=== PATIENT | female | born 1945 | race Caucasian/White ===

== ENCOUNTER → 2016-10-28 | Outpatient (CLI) | payer MEDICARE ==
[2015-04-16 16:50] VITALS: BP 141/67
[~2016-10-28] MED LIST: REGADENOSON 0.4 MG/5 ML DISP.SYRIN. IV ONE
--- NOTE | 2016-10-28 09:21 | RAD ---
APPROVED REPORT Patient Location : OUT-PATIENT Indications Lower Extremity Pain : Bilateral Findings Telles scale images of the right and left greater saphenous veins reveals no thrombus on limited images . The RGSV measures 5.8 mm and does not show clear evidence of reflux. The LGSV measures 4.4 mm and d oes not reflux. The bilateral lesser saphenous veins do not reflux. Critical Notification Critical Value: No <Conclusion> 1. Negative for reflux in the bilateral lesser and greater saphenous veins.
--- NOTE | 2016-10-28 11:35 | CARD ---
APPROVED REPORT EXAM: Two-dimensional and M-mode echocardiogram with Doppler and color Doppler. Other Information Quality : Average Rhythm : NSR INDICATION Chest Pain 2D DIMENSIONS Left Atrium(2D)2.7 (1.6-4.0cm)IVSd0.7 (0.7-1.1cm) Aortic Root(2D)2.5 (2.0-3.7cm)LVDd3.9 (3.9-5.9cm) LVOT Diameter2.0 (1.8-2.4cm)PWd0.6 (0.7-1.1cm) LVDs2.9 (2.5-4.0cm)FS (%) 25.3 % SV33.1 mlLVEF(%)50.5 (>50%) Aortic Valve AoV Peak Dallin.116.4cm/sAoV VTI25.7cm AO Peak GR.5.4mmHgLVOT Peak Dallin.112.0cm/s LVOT VTI 23.86cmAO Mean GR.3mmHg BRADFORD (VMAX)2.12jz5MRS (VTI)2.80cm2 AI P 1/2 Tbep926qh Mitral Valve MV E Xltxcjmr03.8cm/sMV DECEL LPVP461tc MV A Kduesqdm530.4cm/sMV XMV45gu E/A Ratio0.8MV A Fznyrjhs76np MVA (PHT)5.81cm2 TDI E/Lateral E'8.1E/Medial E'12.3 Pulmonary Valve PV Peak Oqeftjop92.1cm/sPV Peak Grad.3mmHg RVOT VTI14.9cm Tricuspid Valve TR P. Xblcgoez392cj/sRAP HEBOGFYR3rbIc TR Peak Gr.02bgFkMLZS30gaNg Pulmonary Vein S1 Anemhrhg12.4cm/sD2 Rdqtochc44.5cm/s LEFT VENTRICLE The left ventricle is normal size. There is normal left ventricular wall thickness. Left ventricle sy stolic function is normal. The Ejection Fraction is 55%. There is normal LV segmental wall motion. Ti ssue Doppler imaging reveals mild left ventricular diastolic dysfunction. Transmitral Doppler flow pa ttern is Grade I-abnormal relaxation pattern. There is no ventricular septal defect visualized. RIGHT VENTRICLE The right ventricle is normal size. The right ventricular systolic function is normal. ATRIA The left atrium size is normal. The right atrium size is normal. The interatrial septum is intact wit h no evidence for an atrial septal defect or patent foramen ovale as noted on 2-D or Doppler imaging. AORTIC VALVE The aortic valve is mildly calcified. The aortic valve is trileaflet. Doppler and Color Flow revealed moderate aortic regurgitation. There is no significant aortic valvular stenosis. MITRAL VALVE Mitral annular calcification is mild. The mitral valve leaflets are thickened. There is no mitral laura ve stenosis. Doppler and Color Flow revealed mild mitral regurgitation. TRICUSPID VALVE The tricuspid valve is normal in structure and function. Doppler and Color Flow revealed trace tricus pid regurgitation. The PA pressure was estimated at 18 mmHg. There is no tricuspid valve stenosis. PULMONIC VALVE The pulmonic valve is not well visualized. Doppler and Color Flow revealed trace pulmonic valvular re gurgitation. There is no pulmonic valvular stenosis. GREAT VESSELS The aortic root is normal in size. The ascending aorta is normal in size. Normal pulmonary venous adelita w (Doppler). The IVC is normal in size and collapses >50% with inspiration. PERICARDIAL EFFUSION There is no evidence of significant pericardial effusion. Critical Notification Critical Value: No <Conclusion> Left ventricle systolic function is normal. The Ejection Fraction is 55%. There is normal LV segmental wall motion. Transmitral Doppler flow pattern is Grade I-abnormal relaxation pattern. Moderate aortic regurgitation. Mild mitral regurgitation. Trace tricuspid regurgitation. The PA pressure was estimated at 18 mmHg. There is no evidence of significant pericardial effusion.
--- NOTE | 2016-10-28 13:55 | RAD ---
APPROVED REPORT Test Type: Exercise Stress Nurse/Tech: Lisa Clinton R.N. Test Indications: Chest pain Cardiac History: HTN, CAD Medications: SEE EMR Medical History: SEE EMR Resting ECG: SR with PAC's Resting Heart Rate: 87 bpm Resting Blood Pressure: 178/86mmHg Pretest Chest Pain: None Nurse/Tech Notes S1S2, lungs CTA, denied chest pain or SOA. Pt states she has not taken her BP meds this morning and i s feeling anxious. Consent: The procedure was explained to the patient in lay terms. Informed consent was witnessed. Charbel eout was entered into [employer]. History and Stress Test performed by Lisa Clinton R.N. Stress Symptoms Slightly SOA. Tolerated the treadmill well. POST EXERCISE Reason for Termination: Reached target heart rate Target HR: 127 Max HR: 140 bpm 93% of Maximum Predicted HR: 149 bpm Exercise duration: 5:59 min:sec, 2 Stage Exercise capacity: 7.0METs Max Blood Pressure: 180/78mmHg Blood Pressure response to exercise: Normal blood pressure response during stress. Heart Rate response to exercise: Normal Chest Pain: No. Arrhythmia: No. ST Change: No. INTERPRETATION Stress EKG Conclusion: Baseline EKG showed sinus rhythm. No ischemic changes at peak stress. No arr hythmias. Imaging Protocol IMAGE PROTOCOL: Rest Tc-99m/stress Tc-99m 1 day Rest: Stress: Viability: Radiopharm.Tc99m PjqhmkongLn11e Sestamibi Dose11.6mCi 32mCi Duration 17min. 12min. Img Date 10/28/2016 10/28/2016 Inj-Img Ivra36bve. 60min. Rest Admin Site:IV - Right AntecubitalAdministrator:JB Cunningham, ARRT (R)(N) Stress Admin Site: IV - Right AntecubitalAdministrator: Sherry Morales, RT (R)(N) STRESS DATA End Diast. Vol.38.0mlAv. Heart Rate94.0bpm End Syst. Vol.2.0mlCO Index BSA0.0L/min Myocardial Mass83.0gEject. Nkmxggjy05.0% Stress Rates Pk. Fill Rate5.91EDV/secLVtime Pk. Fill 165.52msec Pk. Empty Rate6.93ESV/secLVtime Pk. Eject98.57msec 1/3 Pk. Fill0.99EDV/sec Stress Scores Regional WT1.00Summed WT4.00 Regional WM0.00Summed WM0.00 Study quality was good. Left Ventricular size was Normal at Rest and Stress. Lung uptake was Normal. Left Ventricular ejection fraction is >80%. The rest and stress images show normal perfusion, normal contraction and thickening. LV Perf. Quant 17 Seg. SSS0.00 17 Seg. SRS1.00 17 Seg. SDS0.00 Stress Defect Extent (% LAD)0.00Rest Defect Extent (% LAD)0.00Rev. Defect Extent (% LAD)0.00 Stress Defect Extent (% LCX) 0.00Rest Defect Extent (% LCX)12.50Rev. Defect Extent (% LCX)0.00 Stress Defect Extent (% RCA)0.00Rest Defect Extent (% RCA)0.00Rev. Defect Extent (% RCA)0.00 Stress Defect Extent (% ALEC)0.00Rest Defect Extent (% ALEC)2.20Rev. Defect Extent (% ALEC)0.00 Conclusion 1. Treadmill exercise cardioisotope stress test did not show any evidence of ischemia or infarct. 2. Normal left ventricular systolic function with ejection fraction calculated at >80%. 3. Low risk for cardiac events.
== END | disposition home or self-care (01) ==
LOC: NM 07:21
PROVIDERS: ATTEND Internal Medicine Cardiovascular Disease
DX: I08.3 Combined rheumatic disorders of mitral, aortic and tricuspid valves (principal); M79.605 Pain in left leg; I10 Essential (primary) hypertension; Z79.01 Long term (current) use of anticoagulants
CPT/HCPCS: 78452; 93017; 93306; 93970; 96374; 96376; A9500

== ENCOUNTER → 2017-10-30 | Outpatient (CLI) | payer MEDICARE ==
[2017-10-30] VITALS (16 sets, daily range): BP systolic 140–183; BP diastolic 70–88
[~2017-10-30] VITALS: Ht 160 cm; Wt 58.1 kg
[~2017-10-30] MED LIST changes: +ASPI325T8 PO; +AZAT50TA PO; +CALC500T30 PO; +CHOL10003 PO; +HEPARIN for IV BOLUS 10,000 UNIT/10 ML VIAL. IART ONE; +HEPARIN for IV BOLUS 10,000 UNIT/10 ML VIAL. ONE; +IOHEXOL 300 MG/ML 100ML VIAL. IART ONE; +IOHEXOL 300 MG/ML 100ML VIAL. ONE; +IV 1/2 NORMAL SALINE 1,000 ML IV SCH; +LANS30CA66 PO; +LEVO50TA5 PO; +LIDOCAINE 1% PF 2 ML VIAL. INJ ONE; +LIDOCAINE 1% PF 2 ML VIAL. ONE; +LORA10TA3 PO; +LOSA100T7 PO; +MIDAZOLAM HCL/PF 2 MG/2 ML VIAL. IV ONE; +MIDAZOLAM HCL/PF 2 MG/2 ML VIAL. ONE; +MULT1TAB52 PO; +NITROGLYCERIN 200 MCG/2 ML SYRINGE FOR CATH/VASC LAB. IART ONE; +NITROGLYCERIN 200 MCG/2 ML SYRINGE FOR CATH/VASC LAB. ONE; +NITROGLYCERIN SUBLINGUAL 0.4 MG BOTTLE OF 25. SL PRN; -REGADENOSON 0.4 MG/5 ML DISP.SYRIN. IV ONE; +VERAPAMIL 5 MG/2 ML VIAL. IART ONE; +VERAPAMIL 5 MG/2 ML VIAL. ONE; +VITA400C6 PO; +fentaNYL PF VIAL 100 MCG/2 ML VIAL IV ONE; +fentaNYL PF VIAL 100 MCG/2 ML VIAL ONE
[2017-10-30 08:37] LABS: HEMATOCRIT 41.6 % (36.0-47.0); HEMOGLOBIN 14.1 g/dL (12.0-15.5); RED BLOOD COUNT 4.35 x10^6/uL (3.50-5.40); RED CELL DISTRIBUTION WIDTH 13.6 % (11.5-14.5); WHITE BLOOD COUNT 4.7 x10^3/uL (4.0-11.0)
[2017-10-30 08:46] LABS: CALCIUM 9.6 mg/dL (8.5-10.1); CREATININE 0.8 mg/dL (0.6-1.0); GFR 70.7; POTASSIUM 4.8 mmol/L (3.5-5.1)
[2017-10-30 08:49] LABS: PROTHROMBIN TIME PATIENT 12.6 SEC (11.7-14.0)
--- NOTE | 2017-10-30 10:21 | PDOC ---
MODERATE SEDATION ASSESSMENT RISKS/ALTERNATIVES Risks/Alternatives Risks and alternatives of this type of sedation and procedure discussed with: RISK/ALTERNATIVES: Patient H & P ON CHART H & P H & P on chart and reviewed for co-morbid conditions and appropriate labs. H&P ON CHART: Yes STATUS PREG STATUS ASSESSED: N/A MEDS/ALLERGIES REVIEWED Meds/Allergies Reviewed Medications and Allergies including time and route of recently administered narcotics and sedatives. MEDS/ALLERGIES REVIEWED: Yes ASA RATING ASA RATING: II AIRWAY ASSESSMENT Airway Assessment Airway patency, oral function limitations, presence of caps, crowns, dentures, partials, and ability to extend neck assessed. AIRWAY ASSESSMENT: Yes MALLAMPATI SCORE MALLAMPATI SCORE: II PRE-SEDATION ASSESSMENT PRE-SEDATION ASSESSMENT: Yes SHENA MENDOZA MD Oct 30, 2017 10:21
--- NOTE | 2017-10-30 10:32 | CARD ---
MR#: [id number] Date of Study: 10/30/2017 Ordering Physician: SHENA VILLARREAL, Referring Physician: SHENA VILLARREAL Tech: RT Manjit (R) APPROVED REPORT Technologist: RT Manjit (R) Nurse: RAYMON SEBASTIAN Procedure(s) performed: Left heart catheterization, selective coronary angiography and left ventricul ography via right transradial approach Moderate sedation: 23 min INDICATION The indication(s) include : Recurrent chest pain concerning for unstable angina. PROCEDURE NARRATIVE After explaining the risks, benefits and alternative options, informed consent was obtained from ki ent. Patient was brought to the cardiac [employer] Operator and right wrist was prepped and draped in the usual fashion after confirming a positive modified Nader's test. Arterial access was obtained in the righ t radial artery and a 6 Welsh sheath was inserted. 6 Welsh Jd catheter was used to perform dg ective angiography of the left and right coronary arteries. The same catheter was used to perform lef t ventriculography. Patient tolerated the procedure well. Hemostasis was achieved using TR band. T here were no immediate complications. The following findings were noted. FINDINGS 1. Hemodynamics: Left ventricular end-diastolic pressure of 24 mmHg consistent with chronic diastoli c heart failure. No pullback gradient across the aortic valve. 2. Left ventriculography: Normal left ventricle systolic function with ejection fraction estimated at 60%. No significant mitral regurgitation seen. 3. Coronary angiography: a. The left main coronary artery arose from the left sinus of Valsalva, gave rise to the left anteri or descending and left circumflex arteries and did not show any significant stenosis. b. The left anterior descending artery did not show any significant stenosis. c. The left circumflex artery did not show any significant stenosis. d. The right coronary artery was a large and dominant vessel arising from the right sinus of Valsalv a that showed 20-30% stenosis involving the midsegment. Conclusion 1. No significant coronary artery disease 2. Normal left ventricle systolic function with ejection fraction estimated at 60%. Signed by : Shena Villarreal, Electronically Approved : 10/30/2017 10:31:55
== END | disposition home or self-care (01) ==
LOC: CCL 08:18
PROVIDERS: ATTEND Internal Medicine Cardiovascular Disease
DX: I25.110 Atherosclerotic heart disease of native coronary artery with unstable angina pectoris (principal); Z88.0 Allergy status to penicillin; Z88.1 Allergy status to other antibiotic agents; Z88.8 Allergy status to other drugs, medicaments and biological substances
CPT/HCPCS: 36415; 80048; 85027; 85610; 93458; 99152; 99153; C1769; C1892; J1644; J2250; J3010; J3490; Q9967

== ENCOUNTER → 2019-10-26 | Outpatient (CLI) | payer MEDICARE ==
[2017-10-30 13:45] VITALS: BP 145/75
[~2019-10-26] MED LIST changes: -HEPARIN for IV BOLUS 10,000 UNIT/10 ML VIAL. IART ONE; -HEPARIN for IV BOLUS 10,000 UNIT/10 ML VIAL. ONE; -IOHEXOL 300 MG/ML 100ML VIAL. IART ONE; -IOHEXOL 300 MG/ML 100ML VIAL. ONE; -IV 1/2 NORMAL SALINE 1,000 ML IV SCH; -LIDOCAINE 1% PF 2 ML VIAL. INJ ONE; -LIDOCAINE 1% PF 2 ML VIAL. ONE; +LOSA100T14 PO; -LOSA100T7 PO; -MIDAZOLAM HCL/PF 2 MG/2 ML VIAL. IV ONE; -MIDAZOLAM HCL/PF 2 MG/2 ML VIAL. ONE; +MULT-445 PO; -MULT1TAB52 PO; -NITROGLYCERIN 200 MCG/2 ML SYRINGE FOR CATH/VASC LAB. IART ONE; -NITROGLYCERIN 200 MCG/2 ML SYRINGE FOR CATH/VASC LAB. ONE; -NITROGLYCERIN SUBLINGUAL 0.4 MG BOTTLE OF 25. SL PRN; -VERAPAMIL 5 MG/2 ML VIAL. IART ONE; -VERAPAMIL 5 MG/2 ML VIAL. ONE; -fentaNYL PF VIAL 100 MCG/2 ML VIAL IV ONE; -fentaNYL PF VIAL 100 MCG/2 ML VIAL ONE
--- NOTE | 2019-10-26 13:56 | CARD ---
MR#: [id number] Date of Study: 10/26/2019 Ordering Physician: SHENA MENDOZA, Referring Physician: SHENA MENDOZA Tech: Светлана Holden RDCS APPROVED REPORT EXAM: Two-dimensional and M-mode echocardiogram with Doppler and color Doppler. Other Information Quality : Good INDICATION Hypertension/HCVD 2D DIMENSIONS Left Atrium(2D)2.8 (1.6-4.0cm)IVSd0.5 (0.7-1.1cm) Aortic Root(2D)2.2 (2.0-3.7cm)LVDd4.1 (3.9-5.9cm) LVOT Diameter1.8 (1.8-2.4cm)PWd0.6 (0.7-1.1cm) LVDs3.3 (2.5-4.0cm)FS (%) 25.0 % SV30.9 mlLVEF(%)50.0 (>50%) Aortic Valve AoV Peak Dallin.116.0cm/sAoV VTI25.0cm AO Peak GR.5.4mmHgLVOT Peak Dallin.108.8cm/s AO Mean GR.3mmHgAVA (VMAX)2.50cm2 BR[place]FORD (VTI)2.49ys0NU P 1/2 Uins918if Mitral Valve MV E Mzhuuafn847.2cm/sMV DECEL TZSZ383gu MV A Qvcfmexi482.4cm/sE/A Ratio1.1 Tricuspid Valve TR P. Xsvmsxxi080dw/sRAP GQCENMPD0wnRs TR Peak Gr.64jkRwXPMV20tsQn Pulmonary Vein S1 Bqwopztr36.0cm/sD2 Dczoqmtk09.5cm/s LEFT VENTRICLE The left ventricle is normal size. There is normal left ventricular wall thickness. The left ventricu lar systolic function is normal. The Ejection Fraction is 55%. There is normal LV segmental wall bryan on. Transmitral Doppler flow pattern is Grade I-abnormal relaxation pattern. RIGHT VENTRICLE The right ventricle is normal size. The right ventricular systolic function is normal. ATRIA The left atrium size is normal. The right atrium size is normal. The interatrial septum is intact wit h no evidence for an atrial septal defect or patent foramen ovale as noted on 2-D or Doppler imaging. AORTIC VALVE The aortic valve is mildly thickened but opens well. Doppler and Color Flow revealed mild aortic regu rgitation. There is no significant aortic valvular stenosis. MITRAL VALVE The mitral valve is calcified but opens well. There is no evidence of mitral valve prolapse. There is no mitral valve stenosis. Doppler and Color-flow revealed mild mitral regurgitation. TRICUSPID VALVE The tricuspid valve is normal in structure and function. Doppler and Color Flow revealed trace tricus pid regurgitation. The PA pressure was estimated at 26 mmHg. There is no tricuspid valve stenosis. PULMONIC VALVE The pulmonic valve is not well visualized. Doppler and Color Flow revealed mild pulmonic valvular reg urgitation. There is no pulmonic valvular stenosis. GREAT VESSELS The aortic root is normal in size. The ascending aorta is not well seen. The IVC is normal in size an d collapses >50% with inspiration. PERICARDIAL EFFUSION There is no evidence of significant pericardial effusion. Critical Notification Critical Value: No <Conclusion> The left ventricular systolic function is normal. The Ejection Fraction is 55%. There is normal LV segmental wall motion. Transmitral Doppler flow pattern is Grade I-abnormal relaxation pattern. Mild aortic regurgitation. Mild mitral regurgitation. Trace tricuspid regurgitation. The PA pressure was estimated at 26 mmHg. There is no evidence of significant pericardial effusion. Signed by : Shena Mendoza, Electronically Approved : 10/26/2019 13:56:00
== END | disposition home or self-care (01) ==
LOC: ECHO 09:48
PROVIDERS: ATTEND Internal Medicine Cardiovascular Disease
DX: I08.8 Other rheumatic multiple valve diseases (principal); I10 Essential (primary) hypertension
CPT/HCPCS: 93306